=== PATIENT | male | born 1955 | race Two or more races ===

== ENCOUNTER 2017-05-17 01:14 | Outpatient (CLI) | payer MEDICARE, MEDICAID ==
[~2017-05-17 01:14] MED LIST: AMIN30LI3; ASPI-436 PO; BENA40TA2 PO; BIMA2.5D4 EACHEYE; CALC667T2 PO; CAP25T PO; CARV-50 PO; CLON-442 PO; CLOP75TA35 PO; DOXE2VIA IV; FOLI0.8T19 PO; FURO40TA4 PO; INSU100V36 SQ; ISOS30TA PO; LEVO125T69 PO; LEVO50TA67 PO; NITR0.4T51 SL; OCUVITE PO; OMEG500C3 PO; OMEP-84 PO; PRAM0.129 PO; ZOC40T PO; [UNRECOGNIZED DRUG - CODE]
== END 2017-05-17 23:59 | disposition home or self-care (01) ==
LOC: DIABETIC 01:14
PROVIDERS: ATTEND Specialist
DX: E11.22 Type 2 diabetes mellitus with diabetic chronic kidney disease (principal); I12.9 Hypertensive chronic kidney disease with stage 1 through stage 4 chronic kidney disease, or unspecified chronic kidney disease; N18.9 Chronic kidney disease, unspecified; F17.200 Nicotine dependence, unspecified, uncomplicated
CPT/HCPCS: G0108

== ENCOUNTER 2017-08-23 04:39 | Outpatient (CLI) | payer MEDICARE, MEDICAID | END 2017-08-23 23:59 | disposition home or self-care (01) | LOC: DIABETIC 04:39 | PROVIDERS: ATTEND Specialist | DX: E10.9 Type 1 diabetes mellitus without complications (principal); I10 Essential (primary) hypertension; Z87.891 Personal history of nicotine dependence | CPT/HCPCS: G0108 ==

== ENCOUNTER 2018-03-08 02:19 | Outpatient (CLI) | payer MEDICARE, MEDICAID ==
[~2018-03-08 02:19] MED LIST changes: -BENA40TA2 PO; +BENA40TA73 PO
== END 2018-03-08 23:59 | disposition home or self-care (01) ==
LOC: DIABETIC 02:19
PROVIDERS: ATTEND Specialist
DX: E10.9 Type 1 diabetes mellitus without complications (principal); I25.2 Old myocardial infarction; I10 Essential (primary) hypertension; Z79.82 Long term (current) use of aspirin; Z79.4 Long term (current) use of insulin; Z87.891 Personal history of nicotine dependence
CPT/HCPCS: G0108

== ENCOUNTER 2018-06-07 01:29 | Outpatient (CLI) | payer MEDICARE, MEDICAID | END 2018-06-07 23:59 | disposition home or self-care (01) | LOC: DIABETIC 01:29 | PROVIDERS: ATTEND Specialist | DX: E10.9 Type 1 diabetes mellitus without complications (principal); I10 Essential (primary) hypertension; I25.2 Old myocardial infarction; Z79.4 Long term (current) use of insulin; Z87.891 Personal history of nicotine dependence; Z79.82 Long term (current) use of aspirin; Z95.1 Presence of aortocoronary bypass graft | CPT/HCPCS: G0108 ==

== ENCOUNTER 2018-07-25 02:21 | Outpatient (CLI) | payer MEDICARE, MEDICAID | END 2018-07-25 23:59 | disposition home or self-care (01) | LOC: DIABETIC 02:21 | PROVIDERS: ATTEND Specialist | DX: E10.65 Type 1 diabetes mellitus with hyperglycemia (principal); E10.22 Type 1 diabetes mellitus with diabetic chronic kidney disease; I12.0 Hypertensive chronic kidney disease with stage 5 chronic kidney disease or end stage renal disease; N18.6 End stage renal disease; Z79.82 Long term (current) use of aspirin; Z79.4 Long term (current) use of insulin; Z95.1 Presence of aortocoronary bypass graft | CPT/HCPCS: G0108 ==

== ENCOUNTER 2018-09-05 03:32 | Outpatient (CLI) | payer MEDICARE, MEDICAID | END 2018-09-05 23:59 | disposition home or self-care (01) | LOC: DIABETIC 03:32 | PROVIDERS: ATTEND Specialist | DX: E10.65 Type 1 diabetes mellitus with hyperglycemia (principal); Z79.4 Long term (current) use of insulin; Z79.899 Other long term (current) drug therapy | CPT/HCPCS: G0108 ==

== ENCOUNTER 2018-12-06 01:20 | Outpatient (CLI) | payer MEDICARE, MEDICAID | END 2018-12-06 23:59 | disposition home or self-care (01) | LOC: DIABETIC 01:20 | PROVIDERS: ATTEND Specialist | DX: E10.69 Type 1 diabetes mellitus with other specified complication (principal) | CPT/HCPCS: G0108 ==

== ENCOUNTER 2019-06-07 01:30 | Outpatient (CLI) | payer MEDICARE, MEDICAID | END 2019-06-07 23:59 | disposition home or self-care (01) | LOC: DIABETIC 01:30 | PROVIDERS: ATTEND Specialist | DX: E11.8 Type 2 diabetes mellitus with unspecified complications (principal) | CPT/HCPCS: G0108 ==